=== PATIENT | male | born 1965 | race Caucasian/White ===

== ENCOUNTER 2024-10-14 10:24 | Inpatient (IN) ==
--- NOTE | 2024-07-23 12:04 | PAT Medication Instructions ---
Medication Instructions Date of Service July 23, 2024 Home Medications multivitamin 1 tab PO QAM tamsulosin 0.4 mg capsule (Flomax) 0.4 mg PO HS Take morning of surgery With a small sip of water, OTHERWISE NOTHING TO EAT OR DRINK AFTER MIDNIGHT: multivitamin 1 tab PO QAM Take evening before surgery tamsulosin 0.4 mg capsule (Flomax) 0.4 mg PO HS Other Notes If you have any questions please call us at [phone] or [phone] or [phone] or [phone]
--- NOTE | 2024-07-28 11:44 | Anesthesiology Consultation ---
Date of Service July 28, 2024 Assessment & Plan (1) Encounter for pre-operative examination: - medical clearance 06/17/24: "...low to moderate risk due to age 58..." Chart Review Chart Review: Acceptable Risk for Surgery and Patient seen in Pre Admission Testing Teaching & Discussion Pre-Anesthesia Teaching/Discussion Notes: Instructed NPO after midnight before surgery, except medications with 15 cc of water. Medication instructions provided according to the PAT guidelines. History Surgery Operation Date: 08/22/24 07:45 Proposed Procedures p L4-L5, L5-S1 Decompression and Fusion, Spinal Cord Monitoring - Jin Cintron DO Height/Weight Height: 5 ft 8 in Weight: 93.7 kg Allergies Allergy/AdvReac Type Severity Reaction Status Date / Time No Known Allergies Allergy Verified 07/23/24 08:49 Medications Home Medications Medication Instructions Recorded Confirmed Last Taken multivitamin 1 tab PO QAM 07/23/24 07/23/24 Unknown tamsulosin 0.4 mg capsule (Flomax) 0.4 mg PO HS 07/23/24 07/23/24 Unknown Additional Notes: Patient was instructed to not take multivitamin morning of surgery. This was also corrected on medication instruction sheet provided to patient. Past Medical History Medical History HLD (hyperlipidemia) per records Hx of Lyme disease (~2015) completed antibiotic tx Migraine PONV (postoperative nausea and vomiting) denies needing scop patch Sleep apnea cpap - occasional use Patient denies h/o stroke, seizures, heart attack, heart failure, DM, HTN, blood clots/DVTs or blood transfusions. Exercise / Class Metabolic Activity II 4-5 Yardwork/Stairs/Walk up hill (denies chest discomfort or shortness of breath with one flight of stairs) Past Surgical History Surgical History History of hand surgery Right Hx of arthroscopy of shoulder Right Hx of colonoscopy Hx of hernia repair x 2 Past Anesthesia History No Family Hx of Anesthesia Complications and Other (slow to wake after right shoulder arthroscopy) History of PONV No Hx of Motion Sickness and History of PONV (denies needing scop patch) Social History Smoking Status: Never smoker Do You Dip or Chew Tobacco: No Hx Alcohol Use: Yes Alcohol type: beer alcohol intake frequency: a few times a week Hx Substance Use: No substance use type: does not use Review of Systems Patient denies chest pain, shortness of breath, dyspnea on exertion, reflux, fever, chills, cough, wheezing, or palpitations. Physical Exam Vital Signs Vitals BP 147/85 P 65 TEMP 97.3 SP02 96% on RA RESP 18 Physical Patient resting comfortably in chair in no acute distress, alert and oriented, responding appropriately throughout visit Full cervical extension range of motion without pain TMD 3.5 finger breadths Mallampati Score 2 Dentition: one crown, denies chipped or loose teeth, caps, implants or bridges Lungs: normal respiratory effort. Good air movement, clear throughout to auscultation, no adventitious breath sounds Cardiac: regular rate and rhythm, no murmurs noted Carotid arteries: negative bruit bilat Lab Results Anesthesia Preop Results Results Anesthesia Widget: WBC 6.51 K/ul (4.8-10.8) 07/28/24 Hgb 15.3 g/dl (14.0-18.0) 07/28/24 Hct 45.7 % (42.0-52.0) 07/28/24 Plt 385 K/uL (130-400) 07/28/24 Na 137 mmol/L (136-145) 07/28/24 K 4.3 mmol/L (3.5-5.1) 07/28/24 Cl 107 mmol/L (98-107) 07/28/24 CO2 27 mmol/L (21-32) 07/28/24 BUN 18 mg/dl (6-23) 07/28/24 Creat 1.09 mg/dl (0.6-1.4) 07/28/24 Glucose Level 90 mg/dl (70-99(Fasting)) 07/28/24 PT 10.3 Seconds (9.0-12.0) 07/28/24 PTT 27 Seconds (21-31) 07/28/24 INR 0.9 (0.9-1.1) 07/28/24 Urine Color Yellow 07/28/24 Urine Appearance Clear (Clear) 07/28/24 Urine pH 7.5 (4.5-7.5) 07/28/24 Urine Specific [place] 1.013 (1.000-1.030) 07/28/24 Urine Protein Negative (Negative) 07/28/24 Urine Glucose (UA) Negative (Negative) 07/28/24 Urine Ketones Negative (Negative) 07/28/24 Urine Blood Negative (Negative) 07/28/24 Urine Nitrite Negative (Negative) 07/28/24 Urine Bilirubin Negative (Negative) 07/28/24 Urine Urobilinogen Negative (Negative) 07/28/24 Urine Leukocyte Esterase Negative (Negative) 07/28/24 Blood Type A Positive 07/28/24 Antibody Screen NEGATIVE 07/28/24 Testing Electrocardiogram Date: 07/28/24 NSR with sinus arrhythmia, rate 64 bpm Chest X-Ray Date: 07/28/24 No active disease in the chest.
[~2024-10-14 10:24] MED LIST: ACETAMINOPHEN 500 MG TAB PO SCH; CeleBREX 200 MG CAP PO SCH; DEXAMETHASONE SOD INJ 4 MG/ML VIAL ONE; GABAPENTIN 600 MG DOSE PO SCH; GLYCOPYRROLATE 0.2 MG/ML VIAL ONE; LIDOCAINE 2% 2 ML VIAL/AMP(20MG/ML) INFIL ONE; LR 15ML/HR IV SCH; LR 60ML/HR IV SCH; MIDAZOLAM HCL 1 MG/ML 2ML VIAL ONE; ONDANSETRON INJ 2 MG/ML 2 ML VIAL ONE; PROPOFOL IV EMULSION 10 MG/ML 20 ML VIAL IV ONE; ROCURONIUM BROMIDE 10 MG/ML 5 ML VIAL IV ONE; SUGAMMADEX SODIUM 200 MG/2 ML VIAL IV ONE; ceFAZolin 2000MG 2,000 MG/15 ML SYR IV SCH; fentaNYL citrate PF 100 MCG/2 ML VIAL ONE
[2024-10-14] MEDS: LR 60ML/HR IV SCH (10:39)
[2024-10-14] MEDS: LR 15ML/HR IV SCH (10:53)
[2024-10-14] MEDS: ACETAMINOPHEN 500 MG TAB PO SCH (10:54)
[2024-10-14] MEDS: GABAPENTIN 600 MG DOSE PO SCH (10:54)
[2024-10-14] MEDS: CeleBREX 200 MG CAP PO SCH (10:54)
[2024-10-14 11:11] LABS: Basophils # (auto) 0.02 K/uL (0.00-0.20); Basophils % (auto) 0.2 %; Eosinophils # (auto) 0.05 K/uL (0.00-0.50); Eosinophils % (auto) 0.5 %; Hemoglobin 16.9 g/dl (14.0-18.0); Immature Granulocytes # (auto) 0.03 K/uL (0.01-0.20); Immature Granulocytes % (auto) 0.3 %; Lymphocytes # (auto) 1.96 K/uL (1.20-3.40); Lymphocytes % (auto) 21.4 %; Mean Corpuscular Hemoglobin 32.4 pg (25.0-34.0); Mean Corpuscular Hgb Conc 34.5 g/dL (32.0-36.0); Mean Corpuscular Volume 93.9 fL (80.0-100.0); Mean Platelet Volume 8.9 fL (9.4-12.4); Monocytes # (auto) 0.67 K/uL (0.11-0.59); Monocytes % (auto) 7.3 %; Neutrophils # (auto) 6.42 K/uL (1.40-6.50); Neutrophils % (auto) 70.3 %; Platelet Count 387 K/uL (130-400); RDW Coefficient of Variation 11.9 % (11.5-14.5); RDW Standard Deviation 41.8 fL (36.4-46.3); Red Blood Count 5.22 M/uL (4.70-6.10); White Blood Count 9.15 K/ul (4.8-10.8)
[2024-10-14 11:16] LABS: Calcium 9.5 mg/dl (8.6-10.3); Potassium 4.2 mmol/L (3.5-5.1)
[2024-10-14] MEDS ORDERED: ATROPINE SULFATE 0.1 MG/ML 10ML SYR IV PRN (11:21)
[2024-10-14] MEDS ORDERED: ePHEDrine sulfate 50 MG/ML AMP IV PRN (11:21)
[2024-10-14] MEDS ORDERED: HYDROmorphone INJ 1 MG/ML SYRINGE IV PRN ×2 (11:21→17:52)
[2024-10-14] MEDS ORDERED: PROMETHAZINE HCL 6.25 MG in SODIUM CHLORIDE 0.9% 50 ML IV PRN (11:21)
[2024-10-14] MEDS ORDERED: FLUMAZENIL 0.1 MG/1 ML 10 ML VIAL IV PRN (11:21)
[2024-10-14] MEDS ORDERED: NALOXONE HCL 0.4 MG/1 ML VIAL/CARP IV PRN ×2 (11:21→17:52)
[2024-10-14] MEDS ORDERED: LABETALOL HCL IV 5 MG/ML 20ML IV PRN (11:21)
[2024-10-14 11:22] LABS: BUN Creatinine Ratio 18.5 (10-20); Creatinine Clr Calc Pharmacy 93.5 ml/min
--- NOTE | 2024-10-14 12:56 | History & Physical Report ---
Date of Service October 14, 2024 Assessment & Plan (1) Lumbosacral spondylosis with radiculopathy: Plan: Decompression and fusion L4-L5 L5-S1 History of Present Illness Chief Complaint: Back and left leg pain Primary Care Provider: Florentin Mullins MD This is a 59-year-old male presents with chronic persistent back and leg pain after failing course of nonoperative care is here for surgical invention. Allergies Allergy/AdvReac Type Severity Reaction Status Date / Time No Known Allergies Allergy Verified 10/14/24 10:51 Home Medications Medication Instructions Recorded Confirmed Type multivitamin 1 tab PO QAM 07/23/24 10/14/24 History tamsulosin 0.4 mg capsule (Flomax) 0.4 mg PO HS 07/23/24 10/14/24 History Past Med/Surg History Problem List (Updated 10/14/24 @ 12:56 by Jin Cintron DO) Lumbosacral spondylosis with radiculopathy Medical History HLD (hyperlipidemia) per records Hx of Lyme disease (~2015) completed antibiotic tx Migraine PONV (postoperative nausea and vomiting) denies needing scop patch Sleep apnea cpap - occasional use Surgical History History of hand surgery Right Hx of arthroscopy of shoulder Right Hx of colonoscopy Hx of hernia repair x 2 Family History (Updated 10/10/24 @ 16:10 by Haley Alexandre RN) Other No family history of adverse response to anesthesia Social History Smoking Status: Never smoker Second Hand Exposure: No; Do You Dip or Chew Tobacco: No; Tobacco Cessation Education Requested by Patient: No Hx Alcohol Use: Yes Alcohol type: beer Hx Substance Use: No Preferred Language: Samoan Communication Ability: Effective Dental Laboratory Supervisor Required: No Beliefs That Will Affect Care: None Current Living Situation: Spouse Other Information That Helps Us Care for You: No Feels Safe at Home: Yes Safety Concerns: Feels Safe At This Time Assistive Devices: CPAP Physical Exam Physical Exam: Patient is alert and oriented Heart regular in rhythm Lungs clear Results & Data Results & Data Vital Signs (Past 12 Hours) Vital Signs Temp Pulse Resp BP Pulse Ox O2 Del Method 10/14/24 10:45 36.8 C 84 18 135/96 97 Room Air
--- NOTE | 2024-10-14 12:56 | History & Physical Bridge Note ---
Date of Service October 14, 2024 History & Physical Bridge Note I have examined the patient, reviewed the History & Physical and in the interval since the performance of the History & Physical I have noted the following changes of clinical significance: no changes noted
[2024-10-14] MEDS: ceFAZolin 2000MG 2,000 MG/15 ML SYR IV SCH ×2 (13:33→21:33)
[2024-10-14] MEDS: BUPIVACAINE/EPINEPHRINE 0.25% 1:200,000 30 ML VIAL ONE (14:01)
[2024-10-14] MEDS ORDERED: fentaNYL citrate PF 100 MCG/2 ML VIAL ONE (14:17)
[2024-10-14] MEDS: ceFAZolin 330 MG/ML 1 GM VIAL ONE (15:39)
[2024-10-14] MEDS: FLOSEAL HEMOSTATIC MATRIX 10ML TOP ONE (15:39)
--- NOTE | 2024-10-14 15:57 | Operative Report ---
Post Operative Report Pre & Post Diagnosis Operation Date: 10/14/24 12:05 Pre-Op Diagnosis: #1 lumbosacral spondylosis with radiculopathy #2 lumbar spondylolisthesis. #3 lumbar spinal stenosis with neurogenic claudication Post-Op Diagnosis: Same I identified the patient and participated in the time-out.: Yes Procedure Operation Date: 10/14/24 12:05 Actual Procedures #1 lumbar decompression with bilateral medial facetectomies and foraminotomies L3-L4, L4-5 and L5-S1. #2 posterior spinal fusion L4-S1. #3 placed posterior instrumentation L4-S1. #4 interbody fusion L4-L5 L5-S1. #5 placement Spira 13 x 26 mm x 2 at L4-L5 and 14 x 26 mm x 2 at L5-S1. #6 placement locally harvested morselized autograft in the posterior lateral gutters. #7 placement is collagen sponge, with Koros in the posterior lateral gutters and os design interbody space. #8 application of versa wrap over the exposed dura. Surgeon Jin Cintron, DO Public Information Officer Chris Torres Estimated Blood Loss 250 Findings See Below Patient is 5 foot 8 weighing over 93 kg with a BMI in excess of 31. The patient's body habitus did continue to significant technical difficulty with positioning exposure and the procedure itself. This had at least 50% increased operative time. Specimens None Indications This is a 59-year-old male presents publish diagnosis of failed course of nonoperative care is here for surgical invention. Description of Procedure Patient was met with identified informed consent obtained. Patient was then taken to the operative suite underwent patient placed in a prone position on the Fraser table top Yair frame. All bony prominences well-padded eyes inspected to ensure no external pressure placed upon them. This point the lumbar spine was prepped and draped in the normal sterile fashion. Sharp dissection with the assistance above the cartilage from down to and exposing the lamina transverse processes of L4-L5 and the sacral ala bilaterally. Noncalcified fashion complete laminectomy of L5 was performed including bilaterally facetectomies and foraminotomies addressing severe spinal stenosis. Then performed a complete laminectomy of L4 again performing bilateral medial facetectomies and foraminotomies addressing severe neural compression and lastly partial laminectomy of L3 with bilateral medial facetectomies to address all subarticular compression. Pedicle screws in place in L4-L5 and S1 levels bilaterally with assistance of fluoroscopy and appropriate size diony placed. By way of transforaminal approach on the right a discectomy of L5-S1 was performed endplates corrected to subcortical the bone and a 14 x 26 mm spiral cage filled with os design bone graft tapped in position. Then proceeded to the left transforaminal region at L5-S1. Again discectomy performed. Endplates guided to subcortical main bone and a second 14 x 26 mm spiral cage filled with os designed tapped into position. I then proceeded L4-[address] of transforaminal approach on the left a discectomy performed endplates guided to subcortical bleeding bone and a 13 x 26 mm Spira cage filled with os design bone graft tapped in position. Then proceeded to the right transforaminal region at L4-5. Discectomy again performed. Endplates guarded to subcortical mean bone and a second 13 x 26 mm Spira cage filled with os design bone graft tapped position. The rods were then compressed locked into final position bilaterally. The transverse processes of L for L5 and the sacral ala burred to subcortical main bone. Infuse collagen sponge, with Koros and local autograft placed in the posterior gutters. 15 round AXEL drain inserted. Versa wrap placed over the exposed dura. Incision was then closed with 1 Vicryl the fascia 2-0 Vicryl subcutaneously and 4 Monocryl for final skin closure. Steri-Strips sterile dressing placed. Patient waken taken PACU stable condition. Please note spinal cord monitoring was utilized at the procedure no changes noted. Chris Quinteros was present at the entire surgery and while the patient positioning complex portion of the surgery and final skin closure. Im ordering 20 grams of Triple Adrian Collagen Powder (One Season [id number]) to treat an incision wound that was caused by a spine procedure. The incision is approximately 2 cm(W) x 4 cm(L) into the joint (D) in size and is a full thickness wound. Triple Adrian collagen comes in 1 gram packets so 20 packets were ordered. Given the size of the wound, with light to moderate exudate I chose to order a 20 day supply. The patient will be provided instructions for proper application of the collagen wound kit. The patient will be asked to apply the collagen powder daily and then cover it with sterile dressings dispensed. Collagen was selected as I expect the collagen to attract monocytes and fibroblasts, act as a sacrificial substrate for MMPs, and ultimately proved a matrix for tissue and vessel growth. The collagen will act as a primary dressing in this scenario. It is medically necessary for proper healing of these wounds to improve bioavailability and contact with each wound surface, this is also to help prevent infection of wounds and promote healing ultimately leading to a better healing outcome and limit the risk of infection. I attest to the content of the Intraoperative Record and any orders documented therein. Any exceptions are noted below.
[2024-10-14] MEDS ORDERED: HYDROmorphone INJ 2 MG/ML SYR/VIAL ONE (16:02)
[2024-10-14] MEDS: ONDANSETRON INJ 2 MG/ML 2 ML VIAL IV PRN (16:43)
[2024-10-14] MEDS: fentaNYL citrate PF 100 MCG/2 ML VIAL IV PRN (16:45)
--- NOTE | 2024-10-14 17:09 | Anesthesiology Progress Note ---
Date of Service October 14, 2024 Anesthesia Post Procedure Vital Signs Vital Signs: Temp Pulse Pulse Resp BP Pulse Ox O2 Del Method 10/14/24 16:50 76 9 L 139/85 94 Nasal Cannula 10/14/24 16:40 73 10 L 133/82 98 Room Air 10/14/24 16:30 82 10 L 131/82 92 Room Air 10/14/24 16:20 80 14 134/78 96 Oxymask 10/14/24 16:14 36.1 C L 77 25 H 121/77 96 Oxymask 10/14/24 10:45 36.8 C 84 18 135/96 97 Room Air O2 Flow Rate 10/14/24 16:50 2 10/14/24 16:40 10/14/24 16:30 10/14/24 16:20 8 10/14/24 16:14 8 10/14/24 10:45 Pain Intensity Lower Back: Pain Intensity: 5 Transfer of Care Handoff Completed per policy Notes Mental Status: alert / awake / arousable Patient Amnestic to Procedure: Yes Nausea / Vomiting: adequately controlled Pain: adequately controlled Airway Patency, RR, SpO2: stable & adequate BP & HR: stable & adequate Hydration State: stable & adequate Anesthetic Complications: no major complications apparent
[2024-10-14] MEDS ORDERED: HYDROmorphone INJ 0.5 MG/0.5 ML SYR IV PRN (17:52)
[2024-10-14] MEDS ORDERED: traMADol HCL 50 MG TABLET PO PRN (17:52)
[2024-10-14] MEDS ORDERED: ALUMINUM/MAGNESIUM SUSP 30 ML UDC PO PRN (17:52)
[2024-10-14] MEDS ORDERED: hydrOXYzine HCl 25 MG TAB PO PRN (17:52)
[2024-10-14] MEDS ORDERED: LORazepam 0.5 MG TAB PO PRN (17:52)
[2024-10-14] MEDS ORDERED: MAGNESIUM HYDROXIDE SUSP 30 ML UDC PO PRN (17:52)
[2024-10-14] MEDS ORDERED: bisacodyL 10 MG SUPP PR PRN (17:52)
[2024-10-14] MEDS ORDERED: ONDANSETRON 4 MG OD TAB PO PRN (17:52)
[2024-10-14] MEDS ORDERED: METOCLOPRAMIDE HCL INJ 5 MG/ML 2 ML VIAL IV PRN (17:52)
[2024-10-14] MEDS ORDERED: LORazepam 2 MG/1 ML VIAL IV PRN (17:52)
[2024-10-14] MEDS ORDERED: DO NOT ADMINISTER FLU VACCINE PRN (17:52)
[2024-10-14] MEDS ORDERED: ACETAMINOPHEN 1,000 MG/100 ML VIAL IV PRN (17:52)
[2024-10-14] MEDS ORDERED: DO NOT ADMINISTER PNEUMOCOCCAL VACCINE PRN (17:52)
[2024-10-14] MEDS ORDERED: PROMETHAZINE 12.5 MG/50.5 ML BAG IV PRN (17:52)
[2024-10-14] MEDS ORDERED: diphenhydrAMINE Capsule 25 MG CAP PO PRN (17:52)
[2024-10-14] MEDS ORDERED: ONDANSETRON INJ 2 MG/ML 2 ML VIAL IV PRN (17:52)
[2024-10-14] MEDS ORDERED: SOD PHOSPHATE/SOD BIPHOSPHATE ENEMA 132 ML BTL PR PRN (17:52)
[2024-10-14] MEDS ORDERED: FAMOTIDINE 20 MG TAB PO PRN (17:52)
[2024-10-14] MEDS: TAMSULOSIN HCL 0.4 MG CAP PO SCH (21:32)
[2024-10-14] MEDS: DOCUSATE SODIUM/SENNA 50/8.6MG TAB PO SCH (21:32)
[2024-10-14] MEDS: ACETAMINOPHEN 500 MG TAB PO PRN (21:32)
[2024-10-15] MEDS: oxyCODONE HCL IR 5 MG TAB (IMMEDIATE RELEASE) PO PRN (03:51)
[2024-10-15] MEDS: POLYETHYLENE (MIRALAX) 17 GM PACK PO SCH (06:07)
[2024-10-15 06:19] LABS: Eosinophils # (auto) 0.02 K/uL (0.00-0.50); Eosinophils % (auto) 0.1 %; Hemoglobin 13.4 g/dl (14.0-18.0); Immature Granulocytes # (auto) 0.06 K/uL (0.01-0.20); Immature Granulocytes % (auto) 0.4 %; Lymphocytes # (auto) 1.17 K/uL (1.20-3.40); Lymphocytes % (auto) 7.7 %; Mean Corpuscular Hemoglobin 33.3 pg (25.0-34.0); Mean Corpuscular Hgb Conc 35.3 g/dL (32.0-36.0); Mean Corpuscular Volume 94.3 fL (80.0-100.0); Mean Platelet Volume 9.3 fL (9.4-12.4); Monocytes # (auto) 0.93 K/uL (0.11-0.59); Monocytes % (auto) 6.1 %; Neutrophils # (auto) 13.07 K/uL (1.40-6.50); Neutrophils % (auto) 85.7 %; Platelet Count 322 K/uL (130-400); RDW Coefficient of Variation 11.9 % (11.5-14.5); RDW Standard Deviation 41.1 fL (36.4-46.3); Red Blood Count 4.03 M/uL (4.70-6.10); White Blood Count 15.25 K/ul (4.8-10.8)
[2024-10-15 06:29] LABS: BUN Creatinine Ratio 17.8 (10-20); Calcium 8.1 mg/dl (8.6-10.3); Creatinine Clr Calc Pharmacy 85.3 ml/min; Potassium 4.4 mmol/L (3.5-5.1)
--- NOTE | 2024-10-15 07:35 | Fluoroscopy Report ---
FL lumbar spine 2-3V CLINICAL HISTORY: L4-S1 DECOMPRESSION AND FUSION COMPARISON STUDY: None. FLUOROSCOPY TIME: 25.9 seconds. Ka,r: 20.91 mGy FLUOROSCOPIC IMAGES: 2 FINDINGS: Fluoroscopy was provided during L4-S1 decompression and fusion. There are interbody spacers at the L4-L5 and L5-S1 levels. Hardware is intact. There are no unexpected radiopaque foreign bodies . IMPRESSION: Fluoroscopy provided during L4-S1 decompression and fusion. ACT 112: Negative or not required by law. Electronically signed by: Davidson Lima M.D. 10/15/2024 7:34 AM
[2024-10-15] MEDS: dexAMETHasone 6 MG in SYRINGE 0 ML IV SCH (08:09)
[2024-10-15] MEDS: MULTIVITAMIN TAB PO SCH (08:09)
--- NOTE | 2024-10-15 08:48 | Consultation ---
Date of Consultation October 15, 2024 Assessment & Plan (1) Lumbosacral spondylosis with radiculopathy: Plan Mr. Mazariegos is a 59 year old gentleman with history of HLD, dysthymia, allergic rhinitis, BPH, and MARINO who is POD 1 from decompression and fusion of L4-L5, L5,S1 due to lumbosacral spondylosis with radiculopathy #lumbosacral spondylosis with radiculopathy s/p decompression and fusion #acute anemia 2/2 postoperative blood loss POD [address] Cintron Hgb 16->13 postoperatively, leukocytosis iso steroids CBC in am, transfuse less than 7 DVT ppx and analgesia per ortho PT/OT patient plans dispo home #BPH continue flomax Thank you for this consultation. We will follow the patient with you during their hospital stay. You can reach a member of the [facility] Hospitalist Team 07/05 via [employer] History of Present Illness Requesting Physician: Dr Cintron Reason for Consultation: Post op med management Attending Physician: Jin Cintron, DO History of Present Illness Mr. Mazariegos is a 59 year old gentleman with history of HLD, dysthymia, allergic rhinitis, BPH, and MARINO who is POD 1 from decompression and fusion of L4-L5, L5,S1 due to lumbosacral spondylosis with radiculopathy that presented down bilateral legs. Allergies Allergy/AdvReac Type Severity Reaction Status Date / Time No Known Allergies Allergy Verified 10/14/24 10:51 Home Medications Medication Instructions Recorded Confirmed Type multivitamin 1 tab PO QAM 07/23/24 10/14/24 History tamsulosin 0.4 mg capsule (Flomax) 0.4 mg PO HS 07/23/24 10/14/24 History oxycodone 5 mg tablet 5 mg PO Q6H PRN pain #30 tabs 10/15/24 Rx tramadol 50 mg tablet 50 mg PO Q6H PRN pain, moderate 10/15/24 Rx #30 tabs Patient History Medical History HLD (hyperlipidemia) per records Hx of Lyme disease (~2015) completed antibiotic tx Migraine PONV (postoperative nausea and vomiting) denies needing scop patch Sleep apnea cpap - occasional use Surgical History History of hand surgery Right Hx of arthroscopy of shoulder Right Hx of colonoscopy Hx of hernia repair x 2 Family History (Updated 10/10/24 @ 16:10 by Haley Alexandre, TONG) Other No family history of adverse response to anesthesia Social History Smoking Status: Never smoker Second Hand Exposure: No; Do You Dip or Chew Tobacco: No; Tobacco Cessation Education Requested by Patient: No Hx Alcohol Use: Yes Alcohol type: beer Hx Substance Use: No Preferred Language: Cuban Communication Ability: Effective Special Certificate Dictator Required: No Beliefs That Will Affect Care: None Current Living Situation: Spouse Other Information That Helps Us Care for You: No Feels Safe at Home: Yes Safety Concerns: Feels Safe At This Time Assistive Devices: CPAP Physical Exam Constitutional: WD/WN, vitals as above Respiratory: normal respiratory effort, lungs clear to auscultation Cardiovascular: RRR, no murmur, no edema Results & Data Vital Signs (Past 12 Hours) Vital Signs Temp Pulse Resp BP Pulse Ox O2 Del Method 10/15/24 07:30 36.5 C 72 16 107/61 95 Room Air 10/15/24 03:00 36.9 C 84 14 101/57 L 94 Room Air 10/15/24 00:12 133/72 10/14/24 23:00 36.5 C 100 H 14 148/91 H 96 Room Air Laboratory Results Short CBC 10/15/24 Range/Units 05:40 WBC 15.25 H (4.8-10.8) K/ul Hgb 13.4 L D (14.0-18.0) g/dl Hct 38.0 L (42.0-52.0) % Plt Count 322 (130-400) K/uL BMP 10/15/24 05:40 Sodium 139 Potassium 4.4 Chloride 107 Carbon Dioxide 25 BUN 18 Creatinine 1.01 Glucose 149 H Calcium 8.1 L Medications Administered Home Medications Medication Instructions Recorded Confirmed Last Taken multivitamin 1 tab PO QAM 07/23/24 10/14/24 10/07/24 tamsulosin 0.4 mg capsule (Flomax) 0.4 mg PO HS 07/23/24 10/14/24 10/07/24 oxycodone 5 mg tablet 5 mg PO Q6H PRN pain #30 tabs 10/15/24 Unknown tramadol 50 mg tablet 50 mg PO Q6H PRN pain, moderate 10/15/24 Unknown #30 tabs Active Medications Generic Name Dose Route Start Last Admin Trade Name Saud PRN Reason Stop Dose Admin Acetaminophen 1,000 mg 10/14/24 17:52 10/15/24 08:16 Acetaminophen 500 Mg Tab PO 11/13/24 17:51 1,000 mg Q8H PRN Administration MILD Pain Scale 1,2,3 & Pre PT Dexamethasone 6 mg/ Syringe 1.5 mls @ 1 mls/min 10/15/24 09:00 10/15/24 08:09 IV 10/17/24 09:02 1 mls/min DAILY ARGELIA Administration Multivitamins 1 tab 10/15/24 09:00 10/15/24 08:09 Multivitamin Tab PO 11/14/24 08:59 1 tab QAM ARGELIA Administration Oxycodone HCl 5 - 10 mg 10/14/24 17:52 10/15/24 13:26 Oxycodone Hcl Ir 5 Mg Tab (Immediate Release) PO 10/28/24 17:51 8 mg Q4H PRN Administration Pain & Pre PT Polyethylene Glycol 17 gm 10/15/24 06:00 10/15/24 13:26 Polyethylene (Miralax) 17 Gm Pack PO 11/14/24 05:59 17 gm Q6 ARGELIA Administration Senna/Docusate Sodium 2 tab 10/14/24 21:00 10/14/24 21:32 Docusate Sodium/Senna 50/8.6mg Tab PO 11/13/24 20:59 2 tab HS ARGELIA Administration Tamsulosin HCl 0.4 mg 10/14/24 21:00 10/14/24 21:32 Tamsulosin Hcl 0.4 Mg Cap PO 11/13/24 20:59 0.4 mg HS ARGELIA Administration
--- NOTE | 2024-10-15 10:59 | Orthopedic Progress Note ---
Date of Service October 15, 2024 Assessment & Plan (1) Lumbosacral spondylosis with radiculopathy: Plan: At this time we will continue physical therapy monitor his AXEL operatively discharge home next few days. Admission and Anticipated Discharge Date Admission Date: October 14, 2024 Subjective Back pain is controlled leg pain markedly improved Physical Exam Physical Exam: Patient is in the chair at the bedside. He is comfortable. Distracted testing. Results & Data Vital Signs (Past 12 Hours) Vital Signs Temp Pulse Resp BP Pulse Ox O2 Del Method 10/15/24 10:57 36.7 C 77 16 138/80 93 Room Air 10/15/24 07:30 36.5 C 72 16 107/61 95 Room Air 10/15/24 03:00 36.9 C 84 14 101/57 L 94 Room Air 10/15/24 00:12 133/72 10/14/24 23:00 36.5 C 100 H 14 148/91 H 96 Room Air
[2024-10-15 19:50] VITALS: PULSE 76
[2024-10-16 07:14] LABS: Hematocrit (blood only) 37.9 % (42.0-52.0); Hemoglobin 13.1 g/dl (14.0-18.0); Mean Corpuscular Hemoglobin 32.2 pg (25.0-34.0); Mean Corpuscular Hgb Conc 34.6 g/dL (32.0-36.0); Mean Corpuscular Volume 93.1 fL (80.0-100.0); Mean Platelet Volume 9.4 fL (9.4-12.4); Platelet Count 328 K/uL (130-400); RDW Coefficient of Variation 12.1 % (11.5-14.5); RDW Standard Deviation 41.9 fL (36.4-46.3); Red Blood Count 4.07 M/uL (4.70-6.10); White Blood Count 15.23 K/ul (4.8-10.8)
[2024-10-16 07:26] VITALS: BP 105/62; RESP 16; TEMP 97.7; O2SAT 96
[2024-10-16] MEDS: KETOROLAC 30 MG/ML VIAL IV PRN (08:05)
--- NOTE | 2024-10-16 08:28 | Discharge Summary ---
Date of Service October 16, 2024 Admission HPI Per Admitting Provider This is a 59-year-old male presents with chronic persistent back and leg pain after failing course of nonoperative care is here for surgical invention. Principal Diagnosis Lumbar spondylosis with radiculopathy Discharge Data Allergies Allergy/AdvReac Type Severity Reaction Status Date / Time No Known Allergies Allergy Verified 10/14/24 10:51 Consultations 10/14/24 17:52 Consult Hospitalist Routine Procedures Performed Operation Date: 10/14/24 12:05 Actual Procedures p L4-L5, L5-S1 Decompression and Fusion, Spinal Cord Monitoring(Not Applicable) - Jin Cintron DO Ordered Studies 10/14/24 12:05 FL lumbar spine 2-3V Routine Hospital Course (1) Lumbosacral spondylosis with radiculopathy: Patient with lumbar decompression fusion trial as well as taken orthopedic for postoperative process posteriorly progressed appropriate. Marked improvement of his back and leg pain. Extra strength testing. Pain well-controlled. Subsidy discharged home. Discharge orders instructions from the chart for further view. Total Time Total Time Spent Total Time Spent (In Minutes): 20 minutes Discharge Plan Discharge Items Patient Disposition: Home - Self-Care Reason For Visit: Lumbar Stenosis with Neurogenic Claudication, Spon Discharge Diagnosis: Lumbar spinal stenosis with neurogenic claudication Activity: As commented below Non-emergency contact: Primary Care Provider Call non-emergency contact if: you have any medication questions Follow-up/Referrals: Florentin Mullins MD [Primary Care Provider] - Diet: Regular Addtl Attending Provider Instructions: ACTIVITY RECOMMENDATIONS: SELF CARE INSTRUCTIONS AFTER THORACIC/LUMBAR FUSIONS 1. You may walk to your tolerance. It is good exercise for your legs and back. Expect some back and intermittent leg aches and pains. 2. You may perform "counter-top" level activities (make a sandwich, michelle with a project, etc.). 3. No bending or lifting of more than 10 pounds or back twisting of any nature (roll like a log when turning in bed). 4. You may ride in a car for 20-30 minutes at a time. No driving until after your first visit with your doctor. 5. Frequent changes of position and restricting sitting to 30 minutes at a time will help limit the amount of back spasms and stiffness you may experience. 6. You may discontinue the use of ambulatory aids (cane, crutches, etc.) once your strength and confidence allow. 7. You may senior engineering tech the shower and let water strike your incision when you arrive home at least once daily. Do not take a tub bath, sit in a hot tub or go into a swimming pool until after your first recheck in the office. 8. You may resume previous diet. SPECIAL CARE INSTRUCTIONS: VERY IMPORTANT TO READ AND REVIEW A. Your surgical incision has been closed with a cosmetic suture under the skin that will dissolve in about 6 weeks. In 14 days, you can use a pair of clean scissors and cut the suture that is left outside of the skin at the ends of your incision. 1. The small skin tapes can be removed 7 days after surgery if they have not fallen off by that point. 2. You may keep the wound open to air as much as possible to promote healing after post-op day number 5 unless told otherwise by your doctor. 3. If you think the wound looks like it is becoming infected (redness or worsening drainage) and/or you are experiencing fever, chill or worsening back pain and muscle spasms, contact the office so that we may evaluate you as soon as possible. B. Complications are uncommon, but please contact us if you have any signs or symptoms of: 1. wound infection (fever higher than 102.5 degrees F, redness, separation of wound, drainage, or increasing pain from the incision) 2. blood clots in legs (pain, swelling, redness and warmth in legs) 3. urinary tract infection (fever higher than 102.5 degrees F, burning upon urination or increased frequency of urination) 4. nerve problems (inability to walk on your toes or heels, numbness, loss of bowel or bladder control) 5. any other symptoms that concern you C. Please call the office at if you have any concerns or questions about your operation or recovery. D. No smoking! Smoking drastically decreases the chance of a solid fusion. E. Do not take any anti-inflammatory medications (Indocin, Advil, Motrin, Aspirin, Naprosyn, etc.) as these may inhibit the chance of a solid fusion. Tylenol is okay to take for pain. MANAGING PAIN AFTER SPINAL SURGERY 1. Narcotic medication is intended for short-term use and will be provided for surgical pain. Surgical pain usually lasts for a period of 4-6 weeks. Narcotic medication includes Percocet, Vicodin, Darvocet, Tylenol #3 or Lortab. 2. Longer-term pain is more appropriately treated with non-narcotic medication such as Tylenol ES. 3. Muscle spasm is not appropriately treated with narcotics. Muscle relaxers such as Soma, Flexeril or Skelaxin can be used along with Tylenol ES. 4. Remember that we all live with some "aches and pains". This is not unusual or uncommon after an injury or as we get older. a. Back pain is expected and may include muscle spasms for 4 to 6 weeks after surgery. The pain should gradually improve. If the pain worsens for no apparent reason, please contact the office. b. Intermittent leg pain may also be experienced and should not be concerned about unless it worsens for no apparent reason. If so, please contact the office. 5. We will provide appropriate medication within the normal guidelines of their prescribed use. We will also be very cautious and aware of potential abuse and extended duration of patients' medication needs. a. Pain medications are for your comfort and to assist with sleep and rest so that the tissue can heal. They are not provided in order to return to normal activity and should not be used through the day. To do so or worsening pain at night can result from ongoing tissue damage and development of tolerance to the prescribed medicine. 6. Please allow 2-3 days to process refills. Prescriptions will not be mailed but must be picked up at the office. FOLLOW UP VISIT: Keep your scheduled follow-up appointment. Any questions, please call the office at . Pending Studies at Discharge: No Stand-Alone Forms: My [facility] [employer], Smoking Cessation Medications and DC Order Prescriptions: New tramadol 50 mg tablet 50 mg PO Q6H PRN (Reason: pain, moderate) Qty: 30 0RF oxycodone 5 mg tablet 5 mg PO Q6H PRN (Reason: pain) Qty: 30 0RF Continued multivitamin Tablet 1 tab PO QAM tamsulosin [Flomax] 0.4 mg Capsule 0.4 mg PO HS Discharge Orders: Discharge Order (Routine); Ordered 10/16/24 Ordered By: Jin Cintron Admission Data Admit Date/Time: 10/14/24 16:01 Attending Provider: Jin Cintron Admit Provider: Jin Cintron Primary Care Provider: Florentin Mullins Other Providers: Valerie Basurto; Alma Tran; Polo Atkinson
--- NOTE | 2024-10-16 08:52 | Hospitalist Progress Note ---
Date of Service October 16, 2024 Assessment & Plan (1) Lumbosacral spondylosis with radiculopathy: Plan Patient is a 59yo M with history of HLD, dysthymia, allergic rhinitis, BPH, and MARINO who is POD 2 from decompression and fusion of L4-L5, L5,S1 due to lumbosacral spondylosis with radiculopathy. Lumbosacral spondylosis with radiculopathy s/p decompression and fusion Acute anemia 2/2 postoperative blood loss POD [address] Cintron Hgb 16->13 postoperatively, leukocytosis iso steroids CBC in am, hgb stable at 13.4, transfuse less than 7 DVT ppx and analgesia per ortho No post-op bowel movement but passing flatus. Counseled on continuation of bowel regimen, ambulation on dc PT/OT BPH Continue flomax Patient to be discharged home by primary service today. Thank you for this consultation. We will follow the patient with you during their hospital stay. You can reach a [facility] via [employer] I spent a total of 35 minutes coordinating, documenting, and providing care for this patient excluding time spent in the performance of separately billed services. Admission and Anticipated Discharge Date Admission Date: October 14, 2024 Supervising Physician Co-Signing Physician Notes Attending addendum: The patient was seen and examined in medical floor He is status post L4 potassium 5, L5-S1 decompression and fusion Has been doing fine following the procedure Has not physical therapy and recommended home Remains hemodynamically stable without any remarkable His examination was unremarkable and he will be discharged home this afternoon with a primary Agree with assessment katia Tran PA-C and take the full responsibility of care in the hospital Dr Bernardino Atkinson Subjective Patient seen and examined in 303. Sitting in bedside chair working on his computer. States he is in more pain this morning but improved with a little bit of walking and sitting up in his chair. Denies any lower extremity pain or paresthesias. No chest pain, shortness of breath, nausea, vomiting, abdominal pain. Urinating without issue. No postop bowel movement yet but passing flatus. Review of Systems Review of Systems: At least ten systems reviewed and negative except as noted in the HPI. Physical Exam Physical Exam: Gen: WD/WN, NAD, sitting in bedside chair working on computer, A&Ox3 HEENT: Normocephalic, atraumatic, conjunctivae moist, sclerae anicteric, mucous membranes moist Lung: Clear to Auscultation bilaterally, no wheezes/rales/rhonchi Heart: Regular rate, regular rhythm, no murmurs, rubs, or gallops Abdomen: Soft, NT, ND +BS x 4 Extremities: + Spinal dressing c/d/i. No edema Skin: Warm, no rash Results & Data Results & Data Vital Signs (Past 12 Hours) Vital Signs Temp Pulse Resp BP Pulse Ox O2 Del Method 10/16/24 07:26 36.5 C 76 16 105/62 96 Room Air Laboratory Results Short CBC 10/16/24 Range/Units 05:25 WBC 15.23 H (4.8-10.8) K/ul Hgb 13.1 L (14.0-18.0) g/dl Hct 37.9 L (42.0-52.0) % Plt Count 328 (130-400) K/uL Diagnostic Findings Lumbar Spine X-Ray 10/14/24 12:05 FL lumbar spine 2-3V CLINICAL HISTORY: L4-S1 DECOMPRESSION AND FUSION COMPARISON STUDY: None. FLUOROSCOPY TIME: 25.9 seconds. Ka,r: 20.91 mGy FLUOROSCOPIC IMAGES: 2 FINDINGS: Fluoroscopy was provided during L4-S1 decompression and fusion. There are interbody spacers at the L4-L5 and L5-S1 levels. Hardware is intact. There are no unexpected radiopaque foreign bodies. IMPRESSION: Fluoroscopy provided during L4-S1 decompression and fusion. ACT 112: Negative or not required by law. Electronically signed by: Davidson Lima M.D. 10/15/2024 7:34 AM
== END 2024-10-16 12:22 | disposition home or self-care (01) | DRG 427 ==
LOC: ASU 10:24 → PACUINP 16:01 → 3E 19:49